=== PATIENT | male | born 1970 | race Caucasian/White ===

== ENCOUNTER 2018-03-05 01:29 | Emergency (ER) | payer SELFPAY ==
--- NOTE | 2018-03-05 02:40 | ER Document Report ---
ED General - General Chief Complaint: Skin Problem Stated Complaint: SKIN PROBLEM Time Seen by Provider: 03/05/18 01:49 Notes: Patient is a 48-year-old male that comes to the emergency for chief complaint of suspected scabies. He states that he has had several days of worsening symptoms, he states that there are multiple places over his arms and legs where he can squeeze or pick at the area and there appears to be something that comes out of it that he thinks looks like scabies. He describes them as long and whitish in appearance. He states he tried to clean his skin thoroughly to get rid of it, he states that he has been scratching in the area is trying to get them out. He denies fever or chills, nausea or vomiting, headache, abdominal pain, or any other complaints. He tells me he has a past medical history of COPD, he does not tell me any other medical history. He denies recreational drugs. His girlfriend is at bedside. TRAVEL OUTSIDE OF THE [place] IN LAST 30 DAYS: No - Related Data Allergies/Adverse Reactions: No Known Allergies Allergy (Unverified 03/05/18 01:34) Past Medical History - General Information source: Patient - Social History Smoking Status: Current Every Day Smoker Frequency of alcohol use: Occasional Lives with: Family Family History: Reviewed & Not Pertinent - Immunizations Immunizations up to date: Yes Hx Diphtheria, Pertussis, Tetanus Vaccination: Yes Review of Systems - Review of Systems Constitutional: No symptoms reported EENT: No symptoms reported Cardiovascular: No symptoms reported Respiratory: No symptoms reported Gastrointestinal: No symptoms reported Genitourinary: No symptoms reported Male Genitourinary: No symptoms reported Musculoskeletal: No symptoms reported Skin: See HPI Hematologic/Lymphatic: No symptoms reported Neurological/Psychological: No symptoms reported Physical Exam - Vital signs Vitals: Temp Pulse Resp BP 97.4 F 77 20 122/98 H 03/05/18 01:37 03/05/18 01:37 03/05/18 01:37 03/05/18 01:37 - Notes Notes: GENERAL: Alert, unkempt, fidgety HEAD: Normocephalic, atraumatic. EYES: Pupils equal, round, and reactive to light. Extraocular movements intact. ENT: Oral mucosa moist, tongue midline. Oropharynx unremarkable. Airway patent. Nares patent, no nasal septal hematoma, TM's intact. NECK: Full range of motion. Supple. Trachea midline. LUNGS: Clear to auscultation bilaterally, no wheezes, rales, or rhonchi. No respiratory distress. HEART: Regular rate and rhythm. No murmur ABDOMEN: Soft, non-tender. Non-distended. Bowel sounds present in all 4 quadrants. GENITOURINARY: Deferred EXTREMITIES: Moves all 4 extremities spontaneously. No edema, normal radial and dorsalis pedis pulses bilaterally. No cyanosis. BACK: no cervical, thoracic, lumbar midline tenderness. No saddle anesthesia, normal distal neurovascular exam. NEUROLOGICAL: Alert and oriented x3. Normal speech. [cranial nerves II through XII grossly intact]. PSYCH: Slightly anxious elevated mood SKIN: Very dry skin that appears to have been rubbed and packed over the arms and legs bilaterally, small areas of pigment skin with recent scabs and small fresh areas with tiny amount of oozing blood. Multiple areas over the arm with mild erythema surrounding suggestive of early cellulitis. No purulent discharge , vesicles, bulla, induration. Course - Re-evaluation Re-evalutation: Patient has what appears to be jaundice. His girlfriend states that he was diagnosed with pancreatic cancer, patient became angry with his girlfriend after she told this. I suspect patient has hyperbilirubinemia causing itching of the skin. Patient has picked over his arms and legs significantly. He asked me to stay in the room to examine the areas for what he thought were creatures coming out, he did demonstrate to me what he thought were creatures, these were just thin tiny pieces of picked skin. I told patient this multiple times after examining multiple areas and demonstrations. He denies recreational drug use. He denies headache. He denies any other hallucinations. He states he is not hallucinating, he declines CAT scan of the head, he declines laboratory workup and additional evaluation. He states he wants something for his skin and he is here for nothing else. Patient does answer all questions about orientation without any difficulty including date, year, recent holiday, partner at bedside. He is fidgety and has difficulty holding still. I discussed the possibilities, recommendations, and outcome of pancreatic cancer, he states he "knows what all the doctors say, he disagrees, end of story". I tried to calm patient down and discussed how I could help him. Patient states that he is grateful, he would like to get the prescriptions for his skin, he is ready to leave. Significant other also asked for this to be performed. Patient is not hypoxic, this was an error from triage in the front, this was rechecked and his vital signs are normal. - Vital Signs Vital signs: Temp Pulse Resp BP Pulse Ox 97.4 F 77 20 122/98 H 99 03/05/18 01:37 03/05/18 01:37 03/05/18 01:37 03/05/18 01:37 03/05/18 02:03 Discharge - Discharge Clinical Impression: Skin problem Condition: Stable Disposition: HOME, SELF-CARE Additional Instructions: Your evaluation is consistent with jaundice, this is elevated bilirubin levels in your body. This causes the itching. You need to stop picking your skin. There are areas on your skin that have early infection, I recommend that you treat these with the Keflex oral antibiotic. Dress the wounds that you have picked open with topical antibiotics , keep clean with soap and water. He has been provided with permethrin rinse, I recommend that you wait until your skin heals before you use this, no evidence of scabies is seen on this evaluation. I recommend that you follow-up with the listed referral for evaluation and management of pancreatic cancer. Return to the emergency department for any concerning symptoms including developing or spreading redness, fever, or any other concerning symptoms. Prescriptions: Cephalexin Monohydrate [Keflex 500 mg Capsule] 500 mg PO QID #28 capsule Permethrin [Elimite] 60 gm TP ASDIR #1 cream.gm.
[2018-03-05 03:04] VITALS: BP 124/81
== END 2018-03-05 03:04 | disposition home or self-care (01) ==
LOC: ER 01:29
DX: L53.9 Erythematous condition, unspecified (principal); R23.4 Changes in skin texture; J44.9 Chronic obstructive pulmonary disease, unspecified; F17.200 Nicotine dependence, unspecified, uncomplicated
CPT/HCPCS: 99283

== ENCOUNTER 2018-03-05 10:55 | Emergency (ER) | payer SELFPAY ==
[2018-03-05 11:05] VITALS: BP 117/92
[2018-03-05] MEDS ORDERED: ONDANSETRON HCL INJ/PF 4 MG/2 ML SDV IV ONE (11:50)
[2018-03-05] MEDS ORDERED: LORAZEPAM 1 MG TABLET PO ONE (11:52)
[2018-03-05] MEDS ORDERED: DIPHENHYDRAMINE HCL 50 MG CAPSULE PO ONE (11:52)
--- NOTE | 2018-03-05 11:54 | ER Document Report ---
ED Medical Screen (RME) - General Chief Complaint: Skin Problem Stated Complaint: SKIN PROBLEM Time Seen by Provider: 03/05/18 11:40 Notes: 48 years old male with a history of pancreatic cancer, alcohol abuse, smokes- cigarette and cannabis, on and off opioid abuse. Presents today with itchy sensation throughout the whole body as well as left facial lesion/redness and left eye redness. On examination multiple skin rashes due to scratches. Left eye conjunctivitis left facial erythema TRAVEL OUTSIDE OF THE [place] IN LAST 30 DAYS: No - Related Data Allergies/Adverse Reactions: No Known Allergies Allergy (Verified 03/05/18 11:00) Past Medical History Renal/ Medical History: Denies: Hx Peritoneal Dialysis - Immunizations Immunizations up to date: Yes Hx Diphtheria, Pertussis, Tetanus Vaccination: Yes Physical Exam - Vital signs Vitals: Temp Pulse Resp BP Pulse Ox 97.7 F 62 16 117/92 H 97 03/05/18 11:02 03/05/18 11:02 03/05/18 11:02 03/05/18 11:02 03/05/18 11:02 Course - Vital Signs Vital signs: Temp Pulse Resp BP Pulse Ox 97.7 F 62 16 117/92 H 97 03/05/18 11:02 03/05/18 11:02 03/05/18 11:02 03/05/18 11:02 03/05/18 11:02
[2018-03-05 12:40] LABS: ABSOLUTE EOSINOPHILS # (AUTO) 0.2 10^3/uL (0.0-0.6); ABSOLUTE LYMPHOCYTES (AUTO) 1.7 10^3/uL (0.5-4.7); ABSOLUTE MONOCYTES (AUTO) 0.8 10^3/uL (0.1-1.4); ABSOLUTE NEUT (AUTO) 3.8 10^3/uL (1.7-8.2); BASOPHILS % (AUTO) 0.8 % (0-2); EOSINOPHILS % (AUTO) 2.7 % (0-6); HEMATOCRIT 38.4 % (37.9-51.0); HEMOGLOBIN 12.8 g/dL (13.5-17.0); LYMPHOCYTES % (AUTO) 25.8 % (13-45); MEAN CORPUSCULAR HEMOGLOBIN 28.8 pg (27.0-33.4); MEAN CORPUSCULAR HGB CONC 33.3 g/dL (32.0-36.0); MEAN CORPUSCULAR VOLUME 86 fl (80-97); PLATELET COUNT 115 10^3/uL (150-450); RED BLOOD COUNT 4.44 10^6/uL (4.35-5.55); RED CELL DISTRIBUTION WIDTH 13.5 % (11.5-14.0); SEGMENTED NEUTROPHILS % (AUTO) 58.7 % (42-78); TOTAL CELLS COUNTED % (AUTO) 100 %; WHITE BLOOD COUNT 6.5 10^3/uL (4.0-10.5)
[2018-03-05 12:41] LABS: APPEARANCE,URINE CLEAR; BILIRUBIN,URINE NEGATIVE (NEGATIVE); COLOR,URINE YELLOW; GLUCOSE, URINE NEGATIVE (NEGATIVE); KETONES,URINE NEGATIVE (NEGATIVE); LEUKOCYTE ESTERASE,URINE NEGATIVE (NEGATIVE); NITRITE,URINE NEGATIVE (NEGATIVE); PROTEIN,URINE NEGATIVE (NEGATIVE); URINE SPECIFIC GRAVITY 1.013
[2018-03-05 12:58] LABS: ALANINE AMINOTRANSFERASE 59 U/L (21-72); ALBUMIN 3.8 g/dL (3.5-5.0); ALKALINE PHOSPHATASE 158 U/L (38-126); ANION GAP 10 (5-19); ASPARTATE AMINO TRANSFERASE 120 U/L (17-59); BILIRUBIN,DIRECT 0.4 mg/dL (0.0-0.4); BILIRUBIN,TOTAL 1.2 mg/dL (0.2-1.3); BLOOD UREA NITROGEN 7 mg/dL (7-20); CALCIUM 9.1 mg/dL (8.4-10.2); CARBON DIOXIDE 30 mmol/L (22-30); CHLORIDE 102 mmol/L (98-107); GAMMA-GLUTAMYL TRANSFERASE 76 U/L (8-78); GLUCOSE 95 mg/dL (75-110); LIPASE 53.3 U/L (23-300); POTASSIUM 4.1 mmol/L (3.6-5.0); SODIUM 141.7 mmol/L (137-145); TOTAL PROTEIN 7.1 g/dL (6.3-8.2)
[2018-03-05 13:24] LABS: URINE BARBITURATES SCREEN NEGATIVE; URINE BENZODIAZEPINES SCREEN NEGATIVE; URINE COCAINE SCREEN NEGATIVE; URINE MARIJUANA (THC) SCREEN NEGATIVE; URINE METHADONE SCREEN NEGATIVE; URINE PHENCYCLIDINE SCREEN NEGATIVE
--- NOTE | 2018-03-05 14:42 | RADIOLOGY REPORT (SQ) ---
EXAM DESCRIPTION: CT ABD/PELVIS WITH IV ONLY COMPLETED DATE/TIME: 03/05/2018 2:08 pm REASON FOR STUDY: Pancreatic cancer COMPARISON: None are available at this reading TECHNIQUE: CT scan of the abdomen and pelvis performed using helical scanning technique with dynamic intravenous contrast injection. No oral contrast. Images reviewed with lung, soft tissue, and bone windows. Reconstructed coronal and sagittal MPR images reviewed. Delayed images for evaluation of the urinary system also acquired. All images stored on PACS. All CT scanners at this facility use dose modulation, iterative reconstruction, and/or weight based d osing when appropriate to reduce radiation dose to as low as reasonably achievable (ALARA). [facility]: Dose Right [facility]: CareDose [facility]: Dose Right [facility]: Teradose 4D [facility]: [employer] CONTRAST TYPE AND DOSE: contrast/concentration: Isovue 350.00 mg/ml; Total Contrast Delivered: 85.0 ml; Total Saline Delivered: 69.0 ml RENAL FUNCTION: Creatinine - 0.6 BUN-7 RADIATION DOSE: CT Rad equipment meets quality standard of care and radiation dose reduction techniq ues were employed. CTDIvol: 8.0 - 11.0 mGy. DLP: 1163 mGy-cm.. LIMITATIONS: None. FINDINGS: LOWER CHEST: Elevation of the right hemidiaphragm. Dependent atelectasis in the lower lo bes posteriorly. LIVER: Slight nodular contour to the liver, raises the question of cirrhosis of the liver. Re-cannu lization of the umbilical vein. Collateral vessels(varices) in the anterior abdomen. No dilated duct s. The hepatic and portal veins are patent. SPLEEN: The spleen measures 13.3 cm in length, at the upper limits of normal to slightly prominent i n size. PANCREAS: The patient has a given history of pancreatic neoplasm. The pancreas is normal in size, s hape and contour. No adjacent inflammation or peripancreatic fluid collections. Pancreatic duct not dilated. GALLBLADDER: No identified stones by CT criteria. No inflammatory changes to suggest cholecystitis. ADRENAL GLANDS: No significant masses or asymmetry. RIGHT KIDNEY AND URETER: No solid masses. No significant calcifications. No hydronephrosis or hyd roureter. LEFT KIDNEY AND URETER: No solid masses. No significant calcifications. No hydronephrosis or hydr oureter. AORTA AND VESSELS: Atherosclerotic changes involving the abdominal aorta and branch vessels. No ane urysm. No dissection. Renal arteries, SMA, celiac without stenosis. RETROPERITONEUM: No retroperitoneal adenopathy, hemorrhage or masses. BOWEL AND PERITONEAL CAVITY: Constipation. No evidence of free fluid. No masses or inflammatory ch anges. No free fluid or peritoneal masses. APPENDIX: Normal. PELVIS: The prostate gland measures 4.2 cm in diameter. Prostatic concretions. No free fluid. Samreen l bladder. ABDOMINAL WALL: An umbilical hernia contains fat and collateral vessels(varices). BONES: Degenerative changes involving the lumbar spine. Marked deformity with fragmentation of the right femoral head with subluxation laterally. Right hip joint effusion. These findings may represe nt secondary degenerative changes related to prior trauma. OTHER: Distal esophageal varices and small hiatal hernia. Asymmetric prominence of the left piriformis muscle, maybe related to compensatory hypertrophy in vie w of the findings involving the right hip. IMPRESSION: 1. There are no prior films available at this reading. 2. The patient has a given history of pancreatic neoplasm. The pancreas is normal in size, shape and configuration by CT examination. 3. Nodular contour to the liver, suggests cirrhosis of the liver. Re-cannulization of the umbilical vein and collateral vessels are identified in the abdomen. Mild splenomegaly. These constellation of findings raise the question of portal hypertension. 4. An umbilical hernia contains fat and varices. 5. Marked deformity with fragmentation of the right femoral head with subluxation laterally and righ t hip joint. These findings may be related to prior trauma with secondary degenerative changes. 6. The left piriformis muscle is prominent in appearance. This finding may be related to compensato ry hypertrophy in view of the right hip findings. 7. Additional findings as above. TECHNICAL DOCUMENTATION: JOB ID: [id number] Quality ID # [id number]: Final reports with documentation of one or more dose reduction techniques (e.g., Au tomated exposure control, adjustment of the mA and/or kV according to patient size, use of iterative reconstruction technique) 2010 [employer]- All Rights Reserved Reading location - IP/workstation name: [email or web address]
--- NOTE | 2018-03-05 14:47 | ER Document Report ---
ED General - General Chief Complaint: Skin Problem Stated Complaint: SKIN PROBLEM Time Seen by Provider: 03/05/18 11:40 TRAVEL OUTSIDE OF THE [place] IN LAST 30 DAYS: No - HPI Notes: Patient presents from home for diffuse skin itching. He states it has been going on for the past few days. He denies using any benadryl or lotions. Patient has been taking "a lot" of Adderall that is not perscribed to him. He does have a history of drug abuse in the past. HPI is limited because patient is currently high and minimally answering questions. He denies and CP, shortness of breath, abdominal pain, vomiting, fevers and headaches. - Related Data Allergies/Adverse Reactions: No Known Allergies Allergy (Verified 03/05/18 11:00) Past Medical History - Social History Smoking Status: Current Every Day Smoker Chew tobacco use (# tins/day): No Frequency of alcohol use: Heavy Drug Abuse: Marijuana, Other Family History: Reviewed & Not Pertinent Patient has suicidal ideation: No Patient has homicidal ideation: No - Past Medical History Cardiac Medical History: Reports: Hx Hypertension Renal/ Medical History: Denies: Hx Peritoneal Dialysis Musculoskeletal Medical History: Reports Hx Arthritis - osteo Past Surgical History: Reports: Hx Tonsillectomy - Immunizations Immunizations up to date: Yes Hx Diphtheria, Pertussis, Tetanus Vaccination: Yes Review of Systems - Review of Systems Constitutional: No symptoms reported EENT: No symptoms reported Cardiovascular: No symptoms reported Respiratory: No symptoms reported Gastrointestinal: No symptoms reported Genitourinary: No symptoms reported Musculoskeletal: No symptoms reported Skin: Rash, Other - itching Hematologic/Lymphatic: No symptoms reported Neurological/Psychological: No symptoms reported Physical Exam - Vital signs Vitals: Temp Pulse Resp BP Pulse Ox 97.7 F 62 16 117/92 H 97 03/05/18 11:02 03/05/18 11:02 03/05/18 11:02 03/05/18 11:02 03/05/18 11:02 - General General appearance: Other - appears intoxicated. Somnolent. wakes to loud verbal stimuli - HEENT Head: Normocephalic, Atraumatic Conjunctiva: Injected Cornea: Normal Extraocular movements intact: Yes Pupils: PERRL - Respiratory Respiratory status: No respiratory distress Chest status: Nontender Breath sounds: Normal Chest palpation: Normal - Cardiovascular Rhythm: Regular Heart sounds: Normal auscultation Murmur: No - Abdominal Inspection: Normal Bowel sounds: Normal Tenderness: Nontender - Back Back: Normal, Nontender - Extremities General upper extremity: Normal ROM, Normal strength, Other - no edema - Psychological Associated symptoms: Normal mood - Skin Skin Temperature: Warm Skin Moisture: Dry Skin Color: Normal - diffuse abrasions to extremities consistent with itching, in multiple phases of healing. no drainage. no abscesses Course - Re-evaluation Re-evalutation: 03/05/18 14:49 vitals reviewed. nursing notes reviewed. patient stable and appears intoxicated. he endorses overdosing of Adderall daily. he denies other drug use. his skin leasions are consistent with picking behaviors from tactile hallucinations. patient encouraged to stop using amphetamines. His workup today is unremarkable. He was discharged home in stable condition to a sober caregiver. Laboratory 03/05/18 03/05/18 03/05/18 11:21 11:21 12:11 WBC 6.5 RBC 4.44 Hgb 12.8 L Hct 38.4 MCV 86 MCH 28.8 MCHC 33.3 RDW 13.5 Plt Count 115 L Seg Neutrophils % 58.7 Lymphocytes % 25.8 Monocytes % 12.0 Eosinophils % 2.7 Basophils % 0.8 Absolute Neutrophils 3.8 Absolute Lymphocytes 1.7 Absolute Monocytes 0.8 Absolute Eosinophils 0.2 Absolute Basophils 0.0 Sodium Potassium Chloride Carbon Dioxide Anion Gap BUN Creatinine Est GFR ( Amer) Est GFR (Non-Af Amer) Glucose Calcium Total Bilirubin Direct Bilirubin Neonat Total Bilirubin Neonat Direct Bilirubin Neonat Indirect Bili GGT AST ALT Alkaline Phosphatase Ammonia Total Protein Albumin Lipase Urine Color YELLOW Urine Appearance CLEAR Urine pH 5.0 Ur Specific Floyd 1.013 Urine Protein NEGATIVE Urine Glucose (UA) NEGATIVE Urine Ketones NEGATIVE Urine Blood NEGATIVE Urine Nitrite NEGATIVE Urine Bilirubin NEGATIVE Urine Urobilinogen 2.0 H Ur Leukocyte Esterase NEGATIVE Urine WBC (Auto) 1 Urine RBC (Auto) 0 Urine Mucus (Auto) RARE Urine Ascorbic Acid NEGATIVE Urine Opiates Screen NEGATIVE Urine Methadone Screen NEGATIVE Ur Barbiturates Screen NEGATIVE Ur Phencyclidine Scrn NEGATIVE Ur Amphetamines Screen U Benzodiazepines Scrn NEGATIVE Urine Cocaine Screen NEGATIVE U Marijuana (THC) Screen NEGATIVE Serum Alcohol 03/05/18 03/05/18 03/05/18 12:11 12:11 12:11 WBC RBC Hgb Hct MCV MCH MCHC RDW Plt Count Seg Neutrophils % Lymphocytes % Monocytes % Eosinophils % Basophils % Absolute Neutrophils Absolute Lymphocytes Absolute Monocytes Absolute Eosinophils Absolute Basophils Sodium 141.7 Potassium 4.1 Chloride 102 Carbon Dioxide 30 Anion Gap 10 BUN 7 Creatinine 0.60 Est GFR ( Amer) > 60 Est GFR (Non-Af Amer) > 60 Glucose 95 Calcium 9.1 Total Bilirubin 1.2 Direct Bilirubin 0.4 Neonat Total Bilirubin Not Reportable Neonat Direct Bilirubin Not Reportable Neonat Indirect Bili Not Reportable GGT 76 AST 120 H ALT 59 Alkaline Phosphatase 158 H Ammonia 30.0 Total Protein 7.1 Albumin 3.8 Lipase 53.3 Urine Color Urine Appearance Urine pH Ur Specific Floyd Urine Protein Urine Glucose (UA) Urine Ketones Urine Blood Urine Nitrite Urine Bilirubin Urine Urobilinogen Ur Leukocyte Esterase Urine WBC (Auto) Urine RBC (Auto) Urine Mucus (Auto) Urine Ascorbic Acid Urine Opiates Screen Urine Methadone Screen Ur Barbiturates Screen Ur Phencyclidine Scrn Ur Amphetamines Screen U Benzodiazepines Scrn Urine Cocaine Screen U Marijuana (THC) Screen Serum Alcohol < 10 Abdomen/Pelvis CT 03/05/18 11:50 IMPRESSION: 1. There are no prior films available at this reading. 2. The patient has a given history of pancreatic neoplasm. The pancreas is normal in size, shape and configuration by CT examination. 3. Nodular contour to the liver, suggests cirrhosis of the liver. Re- cannulization of the umbilical vein and collateral vessels are identified in the abdomen. Mild splenomegaly. These constellation of findings raise the question of portal hypertension. 4. An umbilical hernia contains fat and varices. 5. Marked deformity with fragmentation of the right femoral head with subluxation laterally and right hip joint. These findings may be related to prior trauma with secondary degenerative changes. 6. The left piriformis muscle is prominent in appearance. This finding may be related to compensatory hypertrophy in view of the right hip findings. 7. Additional findings as above. - Vital Signs Vital signs: Temp Pulse Resp BP Pulse Ox 97.7 F 62 16 117/92 H 97 03/05/18 11:02 03/05/18 11:02 03/05/18 11:02 03/05/18 11:02 03/05/18 11:02 - Laboratory Result Diagrams: 03/05/18 12:11 03/05/18 12:11 Laboratory results interpreted by me: 03/05/18 03/05/18 03/05/18 11:21 12:11 12:11 Hgb 12.8 L Plt Count 115 L AST 120 H Alkaline Phosphatase 158 H Urine Urobilinogen 2.0 H Discharge - Discharge Clinical Impression: Amphetamine abuse, Tactile hallucination, Skin abrasion Cirrhosis Qualifiers: Hepatic cirrhosis type: alcoholic cirrhosis Ascites presence: without ascites Qualified Code(s): K70.30 - Alcoholic cirrhosis of liver without ascites Condition: Stable Disposition: HOME, SELF-CARE Instructions: Ampetamine Abuse (OM), Cirrhosis (OM) Additional Instructions: stop using Amphetamines. moisturize you skin with lotion Referrals: [facility] [Provider Group] - Follow up as needed
== END 2018-03-05 16:34 | disposition left against medical advice (07) ==
LOC: ER 10:55
DX: F15.10 Other stimulant abuse, uncomplicated (principal); R44.2 Other hallucinations; T14.8XXA Other injury of unspecified body region, initial encounter; X58.XXXA Exposure to other specified factors, initial encounter; K70.30 Alcoholic cirrhosis of liver without ascites; F17.200 Nicotine dependence, unspecified, uncomplicated; I10 Essential (primary) hypertension; F12.10 Cannabis abuse, uncomplicated; R40.0 Somnolence; K42.9 Umbilical hernia without obstruction or gangrene
CPT/HCPCS: 99285; 96374; 36415; 80307 ×2; 82140; 82977; 83690; 85025; 80076; 80048; 81001; 74177; J2405